=== PATIENT | female | born 2000 | race Two or more races ===

== ENCOUNTER 2021-02-17 23:32 | Emergency (ER) | payer SELFPAY ==
[~2021-02-17] VITALS: Ht 162.6 cm; Wt 68.0 kg
[2021-02-18 00:29] VITALS: BP 122/69
[2021-02-18] MEDS ORDERED: AMOX-430 PO (00:48)
[2021-02-18] MEDS ORDERED: SULF1TAB48 PO (00:48)
== END 2021-02-18 00:56 | disposition home or self-care (01) ==
LOC: ER 23:36
DX: A49.02 Methicillin resistant Staphylococcus aureus infection, unspecified site (principal); Z60.2 Problems related to living alone

== ENCOUNTER 2021-04-10 03:10 | Emergency (ER) | payer MEDICAID ==
[~2021-04-10] VITALS: Ht 165.1 cm; Wt 68.0 kg
[~2021-04-10 03:10] MED LIST: AMOX-430 PO; SULF1TAB48 PO
[2021-04-10 03:38] VITALS: BP 132/80
--- NOTE | 2021-04-10 03:50 | NUR ---
DR SWANSON AT [facility] SIDE
[2021-04-10] MEDS ORDERED: CEPH500T PO (03:57)
[2021-04-10] MEDS ORDERED: SULF1TAB48 PO (03:57)
== END 2021-04-10 04:00 | disposition home or self-care (01) ==
LOC: ER 03:13
DX: L03.115 Cellulitis of right lower limb (principal); Z60.2 Problems related to living alone; Z79.899 Other long term (current) drug therapy